=== PATIENT | male | born 1945 | race Caucasian/White ===

== ENCOUNTER 2023-09-10 10:02 | Outpatient (CLI) | payer OTHER, SELFPAY ==
--- OUTSIDE RECORDS SUMMARY | 2023-09-10 10:09 | XMS_ITS | Clinical Summary ---
Author Name Unknown Organization [facility] Address [address] [place] [id number] Care Team Providers Care Field Contact Person Name Role Phone [facility] Primary Care Provider Allergies Active Allergy Reactions Criticality Noted Date Comments Seasonal Allergies 04/17/2023 Medications Medication Sig Dispensed Refills Start Date End Date Status cetirizine (ZYRTEC) 10 MG tablet Take 1 tablet by mouth daily. 0 Active insulin pen needle (NOVOFINE) 30G X 8 MM MISCIndications:Typ e II or unspecified type diabetes mellitus without mention of complication, not stated as uncontrolled Use twice daily or as directed. 100 each 0 04/24/2013 Active LANTUS SOLOSTAR SOLN 100 UNIT/MLIndications: Type II or unspecified type diabetes mellitus without mention of complication, not stated as uncontrolled 17 units at bedtime 1 Month 1 05/22/2013 Active Additional Information Patient taking differently: 14 units at bedtime, Reported on 01/31/2016 glucose blood test strips (ACCU-CHEK COMPACT DRUM TEST STRIPS) stripIndications:Ty pe II or unspecified type diabetes mellitus without mention of complication, not stated as uncontrolled TEST 4 TIMES A DAY 3 Month 3 12/04/2013 Active LOSARTAN POTASSIUM PO Take 25 mg by mouth daily 0 Active LEVOTHYROXINE SODIUM PO Take 50 mcg by mouth 0 Active atorvastatin (LIPITOR) 40 MG tablet Take 40 mg by mouth daily 0 Active alum & mag hydroxide-simethico ne (MYLANTA/MAALOX) 200-200-20 MG/5ML SUSP Take 30 mLs by mouth every 4 hours as needed for indigestion or heartburn 355 mL 1 01/31/2016 Active blood glucose calibration (ACCU-CHEK COMPACT BLUE CONTROL) solutionIndications :Type 2 diabetes mellitus with cataract (H) 1 drop by In Vitro route as needed 1 Bottle 10 02/25/2016 Active benzonatate (TESSALON) 100 MG capsuleIndications: Cough in adult Take 1 capsule (100 mg) by mouth 3 times daily as needed 30 capsule 0 04/17/2023 Active Active Problems Problem Noted Date Diagnosed Date 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 Bipin Maikel Jair has no plan or code status on file. Discussed available resources and provided with information. Confirmed code status reflects current choices pending further ACP discussions. Confirmed/documented designated decision maker(s). See permanent comments section of demographics in clinical tab. Added by Kandi Murcia on 12/26/2013 Advance Care Planning 09/21/2016: ACP Review of Chart / Resources Provided: Reviewed chart for advance care plan. Bipin Maikel Adam has no plan or code status on file. Discussed available resources and provided with information. Confirmed code status reflects current choices pending further ACP discussions. Confirmed/documented legally designated decision makers. Added by Bárbara Sterling Pemphigus vulgaris (H28) 02/20/2011 Peptic ulcer disease 12/28/2010 Overview: Dx by EGD Dr Marmolejo BPH (benign prostatic hyperplasia) 12/28/2010 Resolved Problems Problem Noted Date Diagnosed Date Resolved Date Type 2 diabetes mellitus with cataract 07/10/2015 09/21/2016 Papular rash 12/28/2010 02/20/2011 Diabetes mellitus, type 2 12/09/2010 Overview: Seeing Dr. Marmolejo for diabetes Problem list name updated by automated process. Provider to review Immunizations Name Administration Dates Next Due Influenza (High Dose) 3 valent vaccine 5 Influenza (IIV3) PF 05/30/2013,04/20/2012 Influenza Vaccine >6 months,quad, PF 05/05/2016 Pneumo Conj 13-V (2010&after) 10/02/2014 Pneumococcal 23 valent 07/13/2012 TDAP Vaccine (Adacel) 02/05/2011 Zoster vaccine, live 01/04/2012 Family History Medical History Relation Comments Arthritis Father osteo Prostate Cancer Father Eye Disorder Mother mec degeneration Diabetes Paternal Grandmother type 2 Cancer - colorectal No family hx of Relation Status Comments Brother 1 Alive Brother 2 Alive Father (Age 71) prostate cance r Maternal Grandfather Maternal Grandmother Mother (Age 91) old age Paternal Grandfather Paternal Grandmother Sister Alive Son 1 Alive Son 2 Alive Social History Tobacco Use Types Packs/Day Years Used Date Smoking Tobacco: Never Smokeless Tobacco: Never Tobacco Cessation:Counseling Given: Not Answered Alcohol Use Standard Drinks/Week Comments Yes 1.7 (1 standard drink = 0.6 oz p ure alcohol) PHQ-2 Answer Date Recorded PHQ-2 Score 0 08/23/2018 Adolescent Education Answer Date Record ed Getting School Help Needed Not on file 05/30 Sex and Gender Information Value Date Recorded Sex Assigned at Not on file Gender Identity Not on file Sexual Orientation Not on file Last Filed Vital Signs Vital Sign Reading Time Taken Comments Blood Pressure 138/69 04/17/2023 10:48 AM CDT Pulse 65 04/17/2023 10:48 AM CDT Temperature 37 ??C (98.6 ??F) 04/17/2023 10:48 AM CDT Respiratory Rate 18 01/31/2016 4:18 PM CDT Oxygen Saturation 96% 04/17/2023 10:48 AM CDT Inhaled Oxygen Concentration - - Weight 93 kg (205 lb) 09/21/2016 10:27 AM APPLICATION ARCHITECT MANAGER Height 180.3 cm (5' 11) 09/21/2016 10:27 AM APPLICATION ARCHITECT MANAGER Body Mass Index 28.59 09/21/2016 10:27 AM APPLICATION ARCHITECT MANAGER Plan of Treatment Health Maintenance Due Date Last Done Comments ANNUAL REVIEW OF HM ORDERS 1945 RSV VACCINE ( & 60+) (1 - 1-dose 60+ series) 2006 DIABETIC FOOT EXAM 02/07/2014 02/07/2013 TSH W/FREE T4 REFLEX 09/13/2016 09/13/2015, 09/13/2015, 02/07/2013, Additional history exists A1C 03/21/2017 09/21/2016, 02/14, 09/13/2015, Additional history exists CMP 03/21/2017 09/21/2016, 01/14, 02/11/2015, Additional history exists BMP 09/21/2017 09/21/2016, 02/14, 01/31/2016, Additional history exists FALL RISK ASSESSMENT 09/21/2017 09/21/2016, 02/11/2015, 02/11/2015 LIPID 09/21/2017 09/21/2016, 08/17, 02/11/2015, Additional history exists MEDICARE ANNUAL WELLNESS VISIT 09/21/2017 09/21/2016, 02/11/2015, 02/07/2013, Additional history exists MICROALBUMIN 09/21/2017 09/21/2016, 02/14, 04/10/2014, Additional history exists PSA 09/21/2017 09/21/2016, 01/15, 07/18/2013, Additional history exists ADVANCE CARE PLANNING 09/21/2021 09/21/2016 , 12/26/2013, 04/18/2013, Additional history exists EYE EXAM 12/19/2022 12/19/2021, 09/17, 04/24/2014, Additional history exists COVID-19 Vaccine ( season) 2023 05/30/2022, 11/28/2021, 06/18/2021, Additional history exists INFLUENZA VACCINE (#1) 2023 , 06/30/2021, 05/25/2021, Additional history exists PHQ-2 (once per calendar year) 2023 09/21/2016 HEMOGLOBIN 04/17/2024 04/17/2023, 01/14, 07/04/2014, Additional history exists DTAP/TDAP/TD IMMUNIZATION (3 - Td or Tdap) 01/24/2030 01/25/2020, 02/05/2011 COLONOSCOPY Discontinued 02/19/2011 COLORECTAL CANCER SCREENING Discontinued FIT Discontinued 02/17/2013 URINALYSIS Completed 01/31/2016, 01/15, 01/01/2012, Additional history exists HEPATITIS C SCREENING Completed 09/21/2016 ZOSTER IMMUNIZATION Completed 08/22/2019, 11/05/2018, 08/22/2018, Additional history exists Pneumococcal Vaccine: 65+ Years Completed 10/25/2019, 06/22/2018, 10/02/2014, Additional history exists CT COLONOGRAPHY Discontinued FLEX SIG Discontinued HPV IMMUNIZATION Aged Out No longer e ligible based on patient's age to complete this topic IPV IMMUNIZATION Aged Out No longer e ligible based on patient's age to complete this topic MENINGITIS IMMUNIZATION Aged Out No l onger eligible based on patient's age to complete this topic RSV MONOCLONAL ANTIBODY Aged Out No l onger eligible based on patient's age to complete this topic sDNA (Cologuard) Discontinued Care Teams Field Contact Person Relationship Specialty Start Date End Date Clinic, [place], [place] PCP - General 04/17/23
--- OUTSIDE RECORDS SUMMARY | 2023-09-10 10:09 | XMS_ITS | Referral Summary ---
Author Name Unknown Organization [facility] Address [address] [place] [address] Care Team Providers Care Wild Life Photographer Name Role Phone [facility] Primary Care Provider Allergies Active Allergy Reactions [...] Family history of prostate cancer 02/07/2013 [facility] 07/13/2012 Overview: State Tier Level: Tier 2 Status: n/a Sand Hauler: See Letters for [facility] Care Plan ACP (advance care [...] Vaccine (Adacel) 02/05/2011 Zoster vaccine, live 01/04/2012 Social History Tobacco Use Types Packs/Day Years [...] 93 kg (205 lb) 09/21/2016 10:27 AM JOY OPERATOR HELPER Height 180.3 cm (5' 11) 09/21/2016 10:27 AM JOY OPERATOR HELPER Body Mass Index 28.59 09/21/2016 10:27 AM JOY OPERATOR HELPER Plan of Treatment Not on file Care Teams Wild Life Photographer Relationship Specialty Start Date End Date Clinic, [place], [place] PCP - General 04/17/23
--- OUTSIDE RECORDS SUMMARY | 2023-09-10 10:10 | XMS_ITS | Encounter Summary ---
Author Name Unknown Organization [facility] Address [address] [place] [address] Care Team Providers Care Sales Development Representative Name Role Phone Ryan Joshua MD Primary Care Provider + [phone] Oscar Jeffrey MD Primary Care Provide r Oscar Jeffrey MD Unavailable [phone] [facility] Primary Care Provider Reason for Visit * Reason Comments Refill Request Encounter Details Date Type Department Care Team (Late st Contact Info) Description 03/24/2013 Refill [facility] [address] [place] [address] [place] [phone] Ryan Joshua MD XXX RETIRED XXX [address] [phone] Refill Request Social History Tobacco Use Types Packs/Day Years Used Date Smoking Tobacco: Never Smokeless Tobacco: Never Alcohol Use Standard Drinks/Week Comments Yes 1.7 (1 standard drink = 0.6 oz p ure alcohol) Sex and Gender Information Value Date Recorded Sex Assigned at Not on file Gender Identity Not on file Sexual Orientation Not on file documented as of this encounter Miscellaneous Notes * Telephone Encounter - Dari Cui - 03/24/2013 8:11 AM CDT Refill request for Pending Prescriptions: Disp Refills glyBURIDE (DIABETA / MICRONASE) 5 MG tabl*120 ta*0 Sig: TAKE 2 TABLETS BY MOUTH 2 TIMES DAILY. . Last office visit and/or labs done 03/07/13. Needs 1 mo f/u appt. Please authorize 30 day refill. documented in this encounter Plan of Treatment Not on file documented as of this encounter Visit Diagnoses Diagnosis Type II or unspecified type diabetes mellitus without mention of complication, not stated as uncontrolled- Primary documented in this encounter Additional Health Concerns Infection Onset Date Last Indicated Resolved Time Rule Out COVID-19 04/17/2023 04/17/2023 04/18/2023 11:52 AM CDT documented as of this encounter Care Teams Sales Development Representative Relationship Specialty Start Date End Date Ryan Joshua MD XXX RETIRED XXX [address] [employer] [address] [place] [phone] PCP - General Family Practice 12/09/10 10/25/13 Oscar Jeffrey MD XXX RETIRED XXX [address] [employer] [address] [phone] PCP - General Family Practice 10/26/13 10/30/20 [place], [place] PCP - General 04/17/23 Oscar Jeffrey MD [address] [address] Assigned PCP 08/06/13 09/23/19 documented as of this encounter
--- OUTSIDE RECORDS SUMMARY | 2023-09-10 10:10 | XMS_ITS | Encounter Summary ---
Author Name Unknown Organization [facility] Address [address] [place] [address] Care Team Providers Care Sanitation Truck Cleaner Name Role Phone Ryan Joshua MD Primary Care Provider + [phone] Oscar Jeffrey MD Primary Care Provide r Oscar Jeffrey MD Unavailable [phone] [facility] Primary Care Provider Reason for Visit * Reason Comments Refill Request Encounter Details Date Type Department Care Team (Late st Contact Info) Description 12/29/2012 Refill [facility] [address] [place] [phone] Ryan Joshua MD XXX RETIRED XXX [address] [phone] Refill Request Social History Tobacco Use Types Packs/Day Years Used Date Smoking Tobacco: Never Smokeless Tobacco: Never Alcohol Use Standard Drinks/Week Comments Yes 0 (1 standard drink = 0.6 oz pure alcohol) 1-2 times per month 1 drink per time Sex and Gender Information Value Date Recorded Sex Assigned at Not on file Gender Identity Not on file Sexual Orientation Not on file documented as of this encounter Miscellaneous Notes * Telephone Encounter - Sabine Arriola - 12/29/2012 7:38 AM CDT Refill request for Pending Prescriptions: Disp Refills pioglitazone (ACTOS) 15 MG tablet [Pharma*30 tab*0 Sig: Take 1 tablet by mouth daily. Last office visit and/or labs done 10/26. Needs appt. Please authorize 30 day refill. documented in this encounter Plan of Treatment Not on file documented as of this encounter Visit Diagnoses Diagnosis Diabetes mellitus (H)- Primary Type II or unspecified type diabetes mellitus without mention of complication, not stated as uncontrolled documented in this encounter Additional Health Concerns Infection Onset Date Last Indicated Resolved Time Rule Out COVID-19 04/17/2023 04/17/2023 04/18/2023 11:52 AM CDT documented as of this encounter Care Teams Sanitation Truck Cleaner Relationship Specialty Start Date End Date Ryan Joshua MD XXX RETIRED XXX [address] [employer] [address] [place] [phone] PCP - General Family Practice 12/09/10 10/25/13 Oscar Jeffrey MD XXX RETIRED XXX [address] [employer] [address] [phone] PCP - General Family Practice 10/26/13 10/30/20 [place], [place] PCP - General 04/17/23 Oscar Jeffrey MD [address], [address] [address] Assigned PCP 08/06/13 09/23/19 documented as of this encounter
--- OUTSIDE RECORDS SUMMARY | 2023-09-10 10:10 | XMS_ITS | Encounter Summary ---
Author Name Unknown Organization [facility] Address [address] [place] [address]. [place] [address] Care Team Providers Care Job Printer Name Role Phone [facility] Primary Care Provider Reason for Visit * Reason Comments URI Sore throat tues and wed- coughing/ sneezing, congestion denies fever- malaise/fatigue x5 days Encounter Details Date Type Department Care Team (Late st Contact Info) Description 04/17/2023 10:50 AM CDT Office Visit [facility] [id number] [place] [id number] Susan Weathers MD [address] [place] [address] [address] [place] [address] Cough in adult (Primary Dx); Sorethroat; Chills Social History Tobacco Use Types Packs/Day Years Used Date Smoking Tobacco: Never Smokeless Tobacco: Never Tobacco Cessation:Counseling Given: Not Answered Alcohol Use Standard Drinks/Week Comments Yes 1.7 (1 standard drink = 0.6 oz p ure alcohol) PHQ-2 Answer Date Recorded PHQ-2 Score 0 08/23/2018 Sex and Gender Information Value Date Recorded Sex Assigned at Not on file Gender Identity Not on file Sexual Orientation Not on file COVID-19 Exposure Response Date Recorded In the last 10 days, have yo u been in contact with someone who was confirmed or suspected to have Coronavirus/COVID-19? No / Unsure 04/17/2023 10:33 AM CDT documented as of this encounter Last Filed Vital Signs Vital Sign Reading Time Taken Comments Blood Pressure 138/69 04/17/2023 10:48 AM CDT Pulse 65 04/17/2023 10:48 AM CDT Temperature 37 ??C (98.6 ??F) 04/17/2023 10:48 AM CDT Respiratory Rate - - Oxygen Saturation 96% 04/17/2023 10:48 AM CDT Inhaled Oxygen Concentration - - Weight - - Height - - Body Mass Index - - documented in this encounter Patient Instructions * Patient Instructions* Susan Weathers MD - 04/17/2023 10:50 AM CDT Symptomatic measures encouraged, humidified air, plenty of fluids. Stay well hydrated by drinking 6 to 8 glasses of fluids per day. This includes water, soft drinks, sports drinks, juices, tea, or soup. Extra fluids will help loosen mucus in your nose and lungs. Wgwb-lyb-dwzxvfo cough, cold, and sore-throat medicines will not shorten the length of the illness,but they may be helpful to reduce your symptoms. Follow up if symptoms worsen such as sob, high fever and chest pain in 2-3 days Susan Weathers MD documented in this encounter Progress Notes * Susan Weathers MD - 04/17/2023 10:50 AM CDT Chief Complaint Patient presents with URI Sore throat tues and wed- coughing/ sneezing, congestion denies fever- malaise/fatigue x5 days Bipin was seen today for uri. Diagnoses and all orders for this visit: URI (upper respiratory infection) - Streptococcus A Rapid Screen w/Reflex to PCR - Clinic Collect - Symptomatic COVID-19 Virus (Coronavirus) by PCR Nose - Group A Streptococcus PCR Throat Swab Cough in adult Sorethroat Chills - CBC with platelets and differential; Future Results for orders placed or performed in visit on 04/17/23 CBC with platelets and differential Status: Abnormal Result Value Ref Range WBC Count 8.1 4.0 - 11.0 10e3/uL RBC Count 3.73 (L) 4.40 - 5.90 10e6/uL Hemoglobin 11.9 (L) 13.3 - 17.7 g/dL Hematocrit 35.9 (L) 40.0 - 53.0 % MCV 96 78 - 100 fL MCH 31.9 26.5 - 33.0 pg MCHC 33.1 31.5 - 36.5 g/dL RDW 12.7 10.0 - 15.0 % Platelet Count 211 150 - 450 10e3/uL % Neutrophils 68 % % Lymphocytes 13 % % Monocytes 16 % % Eosinophils 2 % % Basophils 0 % % Immature Granulocytes 0 % Absolute Neutrophils 5.5 1.6 - 8.3 10e3/uL Absolute Lymphocytes 1.1 0.8 - 5.3 10e3/uL Absolute Monocytes 1.3 0.0 - 1.3 10e3/uL Absolute Eosinophils 0.2 0.0 - 0.7 10e3/uL Absolute Basophils 0.0 0.0 - 0.2 10e3/uL Absolute Immature Granulocytes 0.0 <=0.4 10e3/uL Streptococcus A Rapid Screen w/Reflex to PCR - Clinic Collect Status: Normal Specimen: Throat; Swab Result Value Ref Range Group A Strep antigen Negative Negative CBC with platelets and differential Status: Abnormal Narrative The following orders were created for panel order CBC with platelets and differential. Procedure Abnormality Status --------- ------ CBC with platelets and d...[[id number]] Abnormal Final result Please view results for these tests on the individual orders. Symptomatic measures encouraged, humidified air, plenty of fluids. Your appetite may be low, so a light diet is fine. Stay well hydrated by drinking 6 to 8 glasses offluids per day. This includes water, soft drinks, sports drinks, juices, tea, or soup. Extra fluidswill help loosen mucus in your nose and lungs. Eurn-wcn-yyytkoy cough, cold, and sore-throat medicines will not shorten the length of the illness,but they may be helpful to reduce your symptoms. Don't use decongestants if you have high blood pressure. Follow up if symptoms worsen such as sob, high fever and chest pain in 2-3 days Results reviewed with pt As CBC normal no antibiotic needed and also chest was clear on exam Covid pending SUBJECTIVE: Bipin Adam is a 78 year old male with h/o DM who presents to the clinic today with a chief complaint of cough and congestion and also fatigue for 5 day(s).His cough is described as persistent. The patient's symptoms are moderate and stable. Associated symptoms include none. The patient's symptoms are exacerbated by no particular triggers Patient has been using OTC cough suppressants to improve symptoms. Past Medical History: Diagnosis Date Allergic state Diabetes mellitus (H) 12/09/2010 Duodenal ulcer due to Helicobacter pylori treated Thyroid disease Current Outpatient Medications Medication Sig Dispense Refill alum & mag hydroxide-simethicone (MYLANTA/MAALOX) 200-200-20 MG/5ML SUSP Take 30 mLs by mouth every 4 hours as needed for indigestion or heartburn 355 mL 1 atorvastatin (LIPITOR) 40 MG tablet Take 40 mg by mouth daily blood glucose calibration (ACCU-CHEK COMPACT BLUE CONTROL) solution 1 drop by In Vitro route as needed 1 Bottle 10 cetirizine (ZYRTEC) 10 MG tablet Take 1 tablet by mouth daily. glucose blood test strips (ACCU-CHEK COMPACT DRUM TEST STRIPS) strip TEST 4 TIMES A DAY 3 Month 3 insulin pen needle (NOVOFINE) 30G X 8 MM MISC Use twice daily or as directed. 100 each prn LANTUS SOLOSTAR SOLN 100 UNIT/ML 17 units at bedtime (Patient taking differently: 14 units at bedtime) 1 Month 1 LEVOTHYROXINE SODIUM PO Take 50 mcg by mouth LOSARTAN POTASSIUM PO Take 25 mg by mouth daily Social History Tobacco Use Smoking status: Never Smokeless tobacco: Never Substance Use Topics Alcohol use: Yes Alcohol/week: 1.7 standard drinks of alcohol Types: 2 Standard drinks or equivalent per week ROS Review of systems negative except as stated above. OBJECTIVE: BP 138/69 Pulse 65 Temp 98.6 ??F (37 ??C) (Tympanic) SpO2 96% GENERAL APPEARANCE: healthy, alert and no distress EYES: EOMI, PERRL, conjunctiva clear HENT: ear canals and TM's normal. Nose and mouth without ulcers, erythema or lesions NECK: supple, nontender, no lymphadenopathy RESP: lungs clear to auscultation - no rales, rhonchi or wheezes CV: regular rates and rhythm, normal S1 S2, murmur noted PSYCH: mentation appears normal Susan Weathers MD documented in this encounter Plan of Treatment Not on file documented as of this encounter Procedures Procedure Name Priority Date/Time Associated Diagnosis Comments CBC WITH PLATELETS AND DIFFERENTIAL Routine 04/17/2023 11:18 AM CDT Chills CBC WITH PLATELETS & DIFFERENTIAL Routine 04/17/2023 11:18 AM CDT Chills COVID-19 VIRUS (CORONAVIRUS) BY PCR Routine 04/17/2023 10:50 AM CDT Cough in adult STREPTOCOCCUS A RAPID SCREEN W REFELX TO PCR Routine 04/17/2023 10:50 AM CDT Cough in adult GROUP A STREPTOCOCCUS PCR THROAT SWAB Routine 04/17/2023 10:50 AM CDT Cough in adult documented in this encounter Results * (ABNORMAL) CBC with platelets and differential (04/17/2023 11:18 AM CDT) WBC Count 8.1 4.0 - 11.0 10e3/uL 04/17/2023 11:38 AM CDT [facility] RBC Count 3.73(L) 4.40 - 5.90 10e6/uL 04/17/2023 11:38 AM CDT [facility] Hemoglobin 11.9(L) 13.3 - 17.7 g/dL 04/17/2023 11:38 AM CDT [facility] Hematocrit 35.9(L) 40.0 - 53.0 % 04/17/2023 11:38 AM CDT [facility] MCV 96 78 - 100 fL 04/17/2023 11:38 AM CDT [facility] MCH 31.9 26.5 - 33.0 pg 04/17/2023 11:38 AM CDT [facility] MCHC 33.1 31.5 - 36.5 g/dL 04/17/2023 11:38 AM CDT [facility] RDW 12.7 10.0 - 15.0 % 04/17/2023 11:38 AM CDT [facility] Platelet Count 211 150 - 450 10e3/uL 04/17/2023 11:38 AM CDT [facility] % Neutrophils 68 % 04/17/2023 11:38 AM CDT [facility] % Lymphocytes 13 % 04/17/2023 11:38 AM CDT [facility] % Monocytes 16 % 04/17/2023 11:38 AM CDT [facility] % Eosinophils 2 % 04/17/2023 11:38 AM CDT [facility] % Basophils 0 % 04/17/2023 11:38 AM CDT [facility] % Immature Granulocytes 0 % 04/17/2023 11:38 AM CDT [facility] Absolute Neutrophils 5.5 1.6 - 8.3 10e3/uL 04/17/2023 11:38 AM CDT [facility] Absolute Lymphocytes 1.1 0.8 - 5.3 10e3/uL 04/17/2023 11:38 AM CDT [facility] Absolute Monocytes 1.3 0.0 - 1.3 10e3/uL 04/17/2023 11:38 AM CDT [facility] Absolute Eosinophils 0.2 0.0 - 0.7 10e3/uL 04/17/2023 11:38 AM CDT [facility] Absolute Basophils 0.0 0.0 - 0.2 10e3/uL 04/17/2023 11:38 AM CDT [facility] Absolute Immature Granulocytes 0.0 <=0.4 10e3/uL 04/17/2023 11:38 AM CDT [facility] Blood BLOOD SPECIMEN / Unknown Venipuncture / Unknown 04/17/2023 11:18 AM CDT 04/17/2023 11:18 AM CDT Susan Weathers MD LAB - BLOOD ORDERABL ES [facility] [address] [facility] (no room number, 1st floor of clinic) [place] [address], [facility] [phone] * Group A Streptococcus PCR Throat Swab (04/17/2023 10:50 AM CDT) Group A strep by PCR Not Detected Not Detected 04/17/2023 4:36 PM CDT [facility] Swab STRUCTURE OF ANTERIOR PORTION OF NECK / Unknown Non-blood Collection / Unknown 04/17/2023 10:50 AM CDT 04/17/2023 11:06 AM CDT Narrative [facility] - 04/17/2023 4:36 PM CDT The Xpert Xpress Strep A test, performed on the [employer], is a rapid, qualitative in vitro diagnostic test for the detection of Streptococcus pyogenes (Group A ? - hemolytic Streptococcus, Strep A) in throat swab specimens from patients with signs and symptoms of pharyngitis. The Xpert Xpress Strep A test can be used as an aid in the diagnosis of Group A Streptococcal pharyngitis. The assay is not intended to monitor treatment for Group A Streptococcus infections. The Xpert Xpress Strep A test utilizes an automated real-time polymerase chain reaction (PCR) to detect Streptococcus pyogenes DNA. Susan Weathers MD LAB - MICRO GENERAL ORDERABLES [facility] [address] [facility] [place] [address] [phone] * Symptomatic COVID-19 Virus (Coronavirus) by PCR Nose (04/17/2023 10:50 AM CDT) [facility] SARS CoV2 PCR Negative Negative 04/18/2023 11:52 AM CDT [facility] Comment:NEGATIVE: SARS-CoV-2 (COVID-19) RNA not detected, presumed negative. Swab NASAL STRUCTURE / Unknown Non-blood Collection / Unknown 04/17/2023 10:50 AM CDT 04/17/2023 10:57 AM CDT Narrative [facility] - 04/18/2023 11:52 AM CDT Testing was performed using the maria elena SARS-CoV-2 assay on the maria elena [employer] System. This test should be ordered for the detection of SARS-CoV-2 in individuals who meet SARS-CoV-2 clinical and/or epidemiological criteria. Test performance is unknown in asymptomatic patients. This test is for in vitro diagnostic use under the FDA EUA for laboratories certified under CLIA to perform high and/or moderate complexity testing. This test has not been FDA cleared or approved. A negative result does not rule out the presence of PCR inhibitors in the specimen or target RNA in concentration below the limit of detection for the assay. The possibility of a false negative should be considered if the patient's recent exposure or clinical presentation suggests COVID-19. This test was validated by the [facility]. This laboratory is certified under the Clinical Laboratory Improvement Amendments of 1988 (CLIA-88) as qualified to perform high and/or moderate complexity laboratory testing. Susan Weathers MD LAB - MICRO GENERAL ORDERABLES [facility] [address] [facility] [place] [address], [place] [phone] * Streptococcus A Rapid Screen w/Reflex to PCR - Clinic Collect (04/17/2023 10:50 AM CDT) Group A Strep antigen Negative Negative 04/17/2023 11:06 AM [facility]T [facility]ORATORY Swab STRUCTURE OF ANTERIOR PORTION OF NECK / Unknown Non-blood Collection / Unknown 04/17/2023 10:50 AM CDT 04/17/2023 10:56 AM CDT Susan Weathers MD LAB - MICRO GENERAL ORDERABLES [facility] [address] [facility] (no room number, 1st floor of clinic) [place] [address], [facility] [phone] documented in this encounter Visit Diagnoses Diagnosis Cough in adult- Primary Sorethroat Acute pharyngitis Chills Chills (without fever) documented in this encounter Additional Health Concerns Infection Onset Date Last Indicated Resolved Time Rule Out COVID-19 04/17/2023 04/17/2023 04/18/2023 11:52 AM CDT documented as of this encounter Care Teams Job Printer Relationship Specialty Start Date End Date Clinic, [place], [place] PCP - General 04/17/23 documented as of this encounter
--- OUTSIDE RECORDS SUMMARY | 2023-09-10 10:10 | XMS_ITS | Encounter Summary ---
Author Name Unknown Organization [facility] Annita whittaker Address [address] [address] Phone Care Team Providers Care Metal Welder Name Role Phone Nati Olsen MD Primary Care Provider + Reason for Visit * Reason Comments CKD Encounter Details Date Type Department Care Team Description 06/25/2023 10:00 AM [facility] Office Visit [employer] [address] [place] [address] Jomar Young MD [address] [place] [address] Chronic kidney disease, stage 4 (severe) (CMS-HCC) (Primary Dx); Renal disorder due to type 2 diabetes mellitus <Diabetic nephropathy> (CMS-HCC); Metabolic acidosis, not otherwise specified; Secondary hyperparathyroidism of renal origin ([facility]); Essential (primary) hypertension; Benign prostatic hyperplasia without lower urinary tract symptom, not otherwise specified Social History Tobacco Use Types Packs/Day Years Used Date Smoking Tobacco: Never Smokeless Tobacco: Never Alcohol Use Standard Drinks/Week Comments Yes 2 (1 standard drink = 0.6 oz pur e alcohol) Occasional Sex and Gender Information Value Date Recorded Sex Assigned at Not on file Gender Identity Not on file Sexual Orientation Not on file documented as of this encounter Last Filed Vital Signs Vital Sign Reading Time Taken Comments Blood Pressure 128/60 06/25/2023 9:57 AM LATHE SCALPER OPERATOR Pulse 58 06/25/2023 9:57 AM LATHE SCALPER OPERATOR Temperature 36.1 ??C (96.9 ??F) 06/25/2023 9:57 AM CS T Respiratory Rate - - Oxygen Saturation - - Inhaled Oxygen Concentration - - Weight 91.4 kg (201 lb 6.4 oz) 06/25/2023 9:57 A M LATHE SCALPER OPERATOR Height 180.3 cm (5' 11) 06/25/2023 9:57 AM LATHE SCALPER OPERATOR Body Mass Index 28.09 06/25/2023 9:57 AM LATHE SCALPER OPERATOR documented in this encounter Progress Notes * Jomar Young MD - 06/25/2023 10:00 AM CST Images from the original note were not included. Primary Care Physician: Nati Olsen MD, MD Referring Physician: No care steam and power superintendent to display Date of consult: 06/25/23 Visit time 40 minutes including review of medical records ([facility], [facility], Care Everywhere) and history and physical examination. I reviewed records from the [facility]. History of Present Illness: Bipin Adam is a 78 y.o. male presenting with follow-up of chronic kidney disease stage IV. Thishas been complicated by metabolic acidosis, hyperparathyroidism and anemia. Comorbidities include diabetes and he is on insulin. He has hypertension on multiple medications. He has BPH and prostate ca ncer. He was previously doing self intermittent catheterization but in 03/07 got a prostatectomy done. He is no longer doing self intermittent catheterization and his Hytrin has been stopped. For hypertension he is on diltiazem XR, Lasix and losartan. For his chronic kidney disease he is oncalcium plus D, vitamin D, ferrous sulfate and sodium bicarbonate. 07/07 weight 190 blood pressure 131/55 01/05 weight 210 blood pressure 122/50 07/08 weight 201 blood pressure 128/60 pulse 58 07/07 urine protein excretion 797 mg/gram creatinine 2.17 estimated GFR 31 bicarbonate 30 ferritin 34 hemoglobin 12.3 PTH 70 12/06 creatinine 2.40 estimated GFR 27 potassium 4.6 calcium 10.0 hemoglobin A1c 7.0 05/08 hemoglobin 11.9 He is feeling generally well. He is going to see urology at the [facility] next week for physical therapy to improve bladder continence. He has had serial PSAs done since his prostatectomy which are not 0 but are fairly low with the last one being 0.22. Past Medical History: No past medical history on file. No past surgical history on file. does not have any pertinent problems on file. Social and Family History: Family History Problem Relation Age of Onset Diabetes mellitus Relative Heart disease Sibling Hypertensive disorder Sibling Bipin Adam reports that he has never smoked. He has never used smokeless tobacco. He reports current alcohol use of about 2.0 standard drinks of alcohol per week. He reports that he does not currently use drugs. Medications: Current Outpatient Medications: atorvastatin (LIPITOR) 40 MG tablet, 1 tab daily, Disp: , Rfl: 0 Calcium Carb-Cholecalciferol (CALCIUM 600 + D) 600-200 MG-UNIT tablet, Take 1 tablet by mouth 3 times a day , Disp: , Rfl: 0 cetirizine (ZyrTEC) 10 MG tablet, Take 1 tablet by mouth 1 (one) time each day, Disp: , Rfl: 0 Cholecalciferol (VITAMIN D3) 25 MCG (1000 UT) capsule, Take 1 capsule by mouth 1 (one) time each day, Disp: , Rfl: dilTIAZem XR (DILACOR XR) 180 MG 24 hr capsule, Take 180 mg by mouth 1 (one) time each day, Disp: ,Rfl: ferrous sulfate 325 (65 Fe) MG tablet, Take 325 mg by mouth 1 (one) time each day with breakfast, Disp: , Rfl: furosemide (LASIX) 20 MG tablet, Take 10 mg by mouth 1 (one) time each day, Disp: , Rfl: Insulin Aspart (NOVOLOG IJ), Inject 6 Units as directed in the morning and 6 Units in the evening. 8 units with larger meal., Disp: , Rfl: insulin glargine (BASAGLAR KWIKPEN) 100 UNIT/ML injection, Inject 20 Units under the skin 1 (one) time each day, Disp: , Rfl: 0 levothyroxine (SYNTHROID, LEVOTHROID) 50 MCG tablet, Take 50 mcg by mouth 1 (one) time each day , Disp: , Rfl: 0 losartan (COZAAR) 100 MG tablet, TAKE ONE TABLET BY MOUTH ONE TIME DAILY, Disp: , Rfl: 2 omeprazole (PriLOSEC) [address] capsule, Take 20 mg by mouth 1 (one) time each day, Disp: , Rfl: sodium bicarbonate 650 MG tablet, Take 650 mg by mouth 2 (two) times a day, Disp: , Rfl: terazosin (HYTRIN) 5 MG capsule, Take 5 mg by mouth every night Unkown dose, Disp: , Rfl: Today's Medication Changes Accurate as of June 25, 2023 10:23 AM. If you have any questions, ask your nurse or doctor. Discontinued triamcinolone 0.1 % cream Commonly known as: KENALOG Allergies: Bipin Adam has No Known Allergies. Optimal Start: Referrals: Provider Modality Education: Modality Planning: Access Type(s): HARDNESS TESTER Status: Transplant Status: Review of Systems: Review of Systems Negative except as noted above Physical Exam: BP 128/60 (BP Location: Left arm, Patient Position: Sitting) Pulse 58 Temp 96.9 ??F (36.1 ??C) BMI 28.09 kg/m?? Physical Exam Constitutional: Appearance: He is well-developed and well-nourished. HENT: Head: Normocephalic. Eyes: Pupils: Pupils are equal, round, and reactive to light. Neck: Vascular: No JVD. Cardiovascular: Rate and Rhythm: Normal rate. Pulses: Intact distal pulses. Heart sounds: Murmur heard. No friction rub. No gallop. Comments: He has an irregular rhythm. There is a 2/6 systolic murmur across the precordium. There is no jugular venous distention. He has 1+ edema. Pulmonary: Effort: Pulmonary effort is normal. Breath sounds: Normal breath sounds. No wheezing or rales. Musculoskeletal: General: Edema present. Cervical back: Neck supple. Comments: 1+ edema bilaterally Skin: Findings: No erythema or rash. Neurological: Mental Status: He is alert and oriented to person, place, and time. Cranial Nerves: No cranial nerve deficit. Comments: Speech is slow but intact Psychiatric: Mood and Affect: Mood and affect normal. Behavior: Behavior normal. Labs and Imaging: Labs reviewed with patient in clinic: Synopsis No data to display Orders Only on 06/29/2022 Component Date Value Ref Range Status PTH, Intact, Serum/Plasma 06/29/2022 70 16 - 77 pg/mL Final Calcium, Serum/Plasma 06/29/2022 9.2 8.6 - 10.3 mg/dL Final Glucose, Serum/Plasma 06/29/2022 119 (H) 65 - 99 mg/dL Final Urea nitrogen, Serum/Plasma (BUN) 06/29/2022 27 (H) 7 - 25 mg/dL Final Creatinine, Serum/Plasma 06/29/2022 2.17 (H) 0.70 - 1.28 mg/dL Final Estimated Glomerular Filtration Ra* 06/29/2022 31 (L) > OR = 60 mL/min/1.73m2 Final Urea nitrogen/Creatinine, Serum/Pl* 06/29/2022 12 6 - 22 (calc) Final Sodium, Serum/Plasma 06/29/2022 140 135 - 146 mmol/L Final Potassium, Serum/Plasma 06/29/2022 4.6 3.5 - 5.3 mmol/L Final Chloride, Serum/Plasma 06/29/2022 103 98 - 110 mmol/L Final Carbon dioxide CO2), total, Serum/* 06/29/2022 30 20 - 32 mmol/L Final Calcium, Serum/Plasma 06/29/2022 9.2 8.6 - 10.3 mg/dL Final Phosphate, Serum/Plasma 06/29/2022 3.2 2.1 - 4.3 mg/dL Final Albumin, Serum/Plasma 06/29/2022 4.2 3.6 - 5.1 g/dL Final Hemoglobin (HGB) 06/29/2022 12.3 (L) 13.2 - 17.1 g/dL Final Color of Urine 06/29/2022 YELLOW YELLOW Final Appearance of Urine 06/29/2022 CLEAR CLEAR Final Specific gravity of Urine 06/29/2022 1.010 1.001 - 1.035 Final pH of Urine 06/29/2022 6.0 5.0 - 8.0 Final Glucose, Urine 06/29/2022 1+ (A) NEGATIVE Final Bilirubin, total, Urine 06/29/2022 NEGATIVE NEGATIVE Final Ketones, Urine 06/29/2022 NEGATIVE NEGATIVE Final Hemoglobin, Urine 06/29/2022 1+ (A) NEGATIVE Final Protein, Urine 06/29/2022 1+ (A) NEGATIVE Final Nitrite, Urine 06/29/2022 NEGATIVE NEGATIVE Final Leukocyte esterase, Urine 06/29/2022 3+ (A) NEGATIVE Final Leukocytes, Urine sediment 06/29/2022 > OR = 60 (A) < OR = 5 /HPF Final Erythrocytes, Urine sediment 06/29/2022 3-10 (A) < OR = 2 /HPF Final Epithelial cells, squamous, Urine * 06/29/2022 NONE SEEN < OR = 5 /HPF Final Bacteria, Urine sediment 06/29/2022 NONE SEEN NONE SEEN /HPF Final Hyaline casts, Urine sediment 06/29/2022 NONE SEEN NONE SEEN /LPF Final Ferritin, Serum/Plasma 06/29/2022 34 24 - 380 ng/mL Final Creatinine, Urine 06/29/2022 69 20 - 320 mg/dL Final Protein/Creatinine, Urine 06/29/2022 797 (H) 25 - 148 mg/g creat Final Protein/Creatinine, Urine 06/29/2022 0.797 (H) 0.025 - 0.148 mg/mg creat Final Protein, Urine 06/29/2022 55 (H) 5 - 25 mg/dL Final Assessment/Plan Diagnoses and all orders for this visit: Chronic kidney disease, stage 4 (severe) ([facility]) He has chronic kidney disease stage IV. Today we will get a renal panel, PTH, hemoglobin, ferritin and hemoglobin A1c. His creatinine has been reasonably steady over the last few years. His last creatinine that I can find in the chart was in 12/06 at 2.4 with estimated GFR 27. He is on a maximal dose of losartan for nephro protection and Lasix for fluid balance. He is on diltiazem XR but off of Hytrin. He appears to have an irregular rhythm and a systolic murmur. He may be in atrial fibrillation. He is on diltiazem and has a slow heart rate. He is not on a beta-shaquille or anticoagulant. I wrote a note for him to give to his primary care doctor who is going to be seeing at the [facility] in the near future. He likely needs an EKG and a cardiac echo to evaluate. He may need to be started on Eliquis. Renal disorder due to type 2 diabetes mellitus <Diabetic nephropathy> ([facility]) His diabetes is well controlled on insulin. Metabolic acidosis, not otherwise specified He continues on a low-dose of sodium bicarbonate and we will check a bicarbonate level today. We can adjust as needed. Secondary hyperparathyroidism of renal origin ([facility]) Check a PTH today. He is on calcium plus D and vitamin D. We will continue these. Essential (primary) hypertension Blood pressure very well controlled on diltiazem, Lasix, losartan. Benign prostatic hyperplasia without lower urinary tract symptom, not otherwise specified Status post prostatectomy and is no longer doing self intermittent catheterization. He will be working with urology therapy to try and improve his bladder control. Urology is following his PSA levels. Problem Specific Notes: No problem-specific Assessment & Plan notes found for this encounter. Recommendations: Return to clinic 4-6 months Same medications Labs today There are no Patient Instructions on file for this visit. No orders of the defined types were placed in this encounter. Future Appointments No future appointments. [facility] documented in this encounter Plan of Treatment Upcoming Encounters Date Type Department Care Team Description 12/24/2023 10:00 AM [facility]T [facility] [address] [place], [place] [address] Jomar Young MD [address] [facility] [address] [place], [place] [address] documented as of this encounter Visit Diagnoses Diagnosis Chronic kidney disease, stage 4 (severe) ([facility])- Primary Renal disorder due to type 2 diabetes mellitus <Diabetic nephropathy> ([facility]) Metabolic acidosis, not otherwise specified Secondary hyperparathyroidism of renal origin ([facility]) Secondary hyperparathyroidism of renal origin Essential (primary) hypertension Benign prostatic hyperplasia without lower urinary tract symptom, not otherwise specified documented in this encounter Care Teams Metal Welder Relationship Specialty Start Date [place] [address] PCP - General Internal Medicine 12/23/21 documented as of this encounter
--- OUTSIDE RECORDS SUMMARY | 2023-09-10 10:10 | XMS_ITS | Encounter Summary ---
Author Name Unknown Organization [facility] Address [address] [place] [address] Care Team Providers Care Certified Green Building Engineer Name Role Phone Ryan Joshua MD Primary Care Provider + [phone] Oscar Jeffrey MD Primary Care Provide r Oscar Jeffrey MD Unavailable [phone] [facility] Primary Care Provider Reason for Visit * Reason Comments Medication Refill Encounter Details Date Type Department Care Team (Late st Contact Info) Description 07/12/2013 Refill [facility] [address] [place] [phone] Ryan Joshua MD XXX RETIRED XXX [address] [phone] Medication Refill Social History Tobacco Use Types Packs/Day Years [...] encounter Miscellaneous Notes * Telephone Encounter - Jodie Thomas Varsha - 07/12/2013 7:40 AM CST Pending Prescriptions: Disp Refills ACCU-CHEK COMPACT DRUM TEST STRIPS strip *120 st*3 Sig: TEST 4 TIMES A DAY Please close encounter if Rx is faxed to pharmacy. Mustapha Feliciano AL ECONOMIST documented in this encounter Plan of Treatment [...] documented as of this encounter Care Teams Certified Green Building Engineer Relationship Specialty Start Date End Date Ryan Joshua MD XXX RETIRED XXX [address] [phone] PCP - General Family Practice 12/09/10 10/25/13 Oscar Jeffrey MD XXX RETIRED XXX [address] [place] [phone] PCP - General Family Practice 10/26/13 10/30/20 [place], [place] PCP - General 04/17/23 Oscar Jeffrey MD [address] [place] [address] Assigned PCP 08/06/13 09/23/19 documented as of this encounter
--- OUTSIDE RECORDS SUMMARY | 2023-09-10 10:10 | XMS_ITS | Encounter Summary ---
Author Name Unknown Organization [facility] Address [address] [place] [address] Care Team Providers Care Formulator Name Role Phone Ryan Joshua MD Primary Care Provider + [phone] Oscar Jeffrey MD Primary Care Provide r Oscar Jeffrey MD Unavailable [phone] [facility] Primary Care Provider Reason for Visit * Reason Comments Refill Request Encounter Details Date Type Department Care Team (Late st Contact Info) Description 03/23/2013 Refill [facility] [address] [place] [address] [place] [phone] Ryan Joshua MD XXX RETIRED XXX [address] [phone] Refill Request Social History Tobacco [...] encounter Miscellaneous Notes * Telephone Encounter - Regla Miller - 03/24/2013 11:08 AM CDT Bipin Adam Pending Prescriptions: Disp Refills pioglitazone (ACTOS) 15 MG tablet [Pharma*90 tab*0 Sig: Take 3 tablets (45 mg) by mouth daily Per your notes pt is to increase to 45 mg per day. And is to recheck in 1 month documented in this encounter Plan of Treatment [...] documented as of this encounter Care Teams Formulator Relationship Specialty Start Date End Date Ryan Joshua MD XXX RETIRED XXX [address] [employer] [address] [phone] PCP - General Family Practice 12/09/10 10/25/13 Oscar Jeffrey MD XXX RETIRED XXX [address] [address] [phone] PCP - General Family Practice 10/26/13 10/30/20 [place], [place] PCP - General 04/17/23 Oscar Jeffrey MD [address], [address] [address] Assigned PCP 08/06/13 09/23/19 documented as of this encounter
--- OUTSIDE RECORDS SUMMARY | 2023-09-10 10:10 | XMS_ITS | Encounter Summary ---
Author Name Unknown Organization [facility] Address [address] [place] [address] Care Team Providers Care Manager Outreach Name Role Phone Ryan Joshua MD Primary Care Provider + [phone] Oscar Jeffrey MD Primary Care Provide r Oscar Jeffrey MD Unavailable [phone] [facility] Primary Care Provider Reason for Visit * Reason Comments Refill Request Encounter Details Date Type Department Care Team (Late st Contact Info) Description 09/11/2012 Refill [facility] [address] [place] [phone] Ryan Joshua MD XXX RETIRED XXX [address] [phone] Refill Request Social History Tobacco [...] on file documented as of this encounter Plan of Treatment Not on file documented as of this encounter Visit Diagnoses Not on filedocumented in this encounter Additional Health Concerns Infection Onset Date Last Indicated Resolved Time Rule Out COVID-19 04/17/2023 04/17/2023 04/18/2023 11:52 AM CDT documented as of this encounter Care Teams Manager Outreach Relationship Specialty Start Date End Date Ryan Joshua MD XXX RETIRED XXX [address] [phone] PCP - General Family Practice 12/09/10 10/25/13 Oscar Jeffrey MD XXX RETIRED XXX [address] [phone] PCP - General Family Practice 10/26/13 10/30/20 [place], [place] PCP - General 04/17/23 Oscar Jeffrey MD [address] [address] Assigned PCP 08/06/13 09/23/19 documented as of this encounter
--- OUTSIDE RECORDS SUMMARY | 2023-09-10 10:10 | XMS_ITS | Encounter Summary ---
Author Name Unknown Organization [facility] Address [address] [place] [address] Care Team Providers Care Compliance Technician Name Role Phone Ryan Joshua MD Primary Care Provider + [phone] Oscar Jeffrey MD Primary Care Provide r Oscar Jeffrey MD Unavailable [phone] [facility] Primary Care Provider Reason for Visit * Reason Comments Refill Request Encounter Details Date Type Department Care Team (Late st Contact Info) Description 06/29/2012 Refill [facility] [address] [place] [phone] Ryan Joshua MD XXX RETIRED XXX [address] [phone] Refill Request Social History Tobacco [...] * Telephone Encounter - Regla Miller - 06/29/2012 7:37 AM CST Bipin Adam Pending Prescriptions: Disp Refills metFORMIN (GLUCOPHAGE) 500 MG tablet [Pha*120 ta*0 Sig: TAKE 2 TABLETS BY MOUTH 2 TIMES DAILY (WITH MEALS). Refill request for metformin. Last office visit and/or labs done 01-01-12. Needs appt. Please authorize 30 day refill. SETTER documented in this encounter Plan of Treatment [...] documented as of this encounter Care Teams Compliance Technician Relationship Specialty Start Date End Date Ryan Joshua MD XXX RETIRED XXX [address] [employer] [address] [phone] PCP - General Family Practice 12/09/10 10/25/13 Oscar Jeffrey MD XXX RETIRED XXX [address] [phone] PCP - General Family Practice 10/26/13 10/30/20 [facility], [place], [place] PCP - General 04/17/23 Oscar Jeffrey MD [address] [place] [address] Assigned PCP 08/06/13 09/23/19 documented as of this encounter
--- OUTSIDE RECORDS SUMMARY | 2023-09-10 10:10 | XMS_ITS | Clinical Summary ---
Author Name Unknown Organization [facility] Annita whittaker Address [address] [address] Phone Care Team Providers Care Plastics Fabricator Or Welder Name Role Phone Nati Olsen MD Primary Care Provider + Allergies No known active allergies Medications Medication Sig Dispensed Refills Start Date End Date Status levothyroxine (SYNTHROID, LEVOTHROID) 50 MCG tablet Take 50 mcg by mouth 1 (one) time each day 0 04/21/2016 Active cetirizine (ZyrTEC) 10 MG tablet Take 1 tablet by mouth 1 (one) time each day 0 01/16/2016 Active atorvastatin (LIPITOR) 40 MG tablet 1 tab daily 0 01/16/2016 Active losartan (COZAAR) 100 MG tablet TAKE ONE TABLET BY MOUTH ONE TIME DAILY 2 10/28/2016 Active insulin glargine (BASAGLAR KWIKPEN) 100 UNIT/ML injection Inject 20 Units under the skin 1 (one) time each day 0 11/02/2017 Active Calcium Carb-Cholecalciferol (CALCIUM 600 + D) 600-200 MG-UNIT tablet Take 1 tablet by mouth 3 times a day 0 01/21/2016 Active Cholecalciferol (VITAMIN D3) 25 MCG (1000 UT) capsule Take 1 capsule by mouth 1 (one) time each day 0 Active dilTIAZem XR (DILACOR XR) 180 MG 24 hr capsule Take 180 mg by mouth 1 (one) time each day 0 Active sodium bicarbonate 650 MG tablet Take 650 mg by mouth 2 (two) times a day 0 Active Insulin Aspart (NOVOLOG IJ) Inject 6 Units as directed in the morning and 6 Units in the evening. 8 units with larger meal. 0 Active ferrous sulfate 325 (65 Fe) MG tablet Take 325 mg by mouth 1 (one) time each day with breakfast 0 Active omeprazole (PriLOSEC) [address] capsule Take 20 mg by mouth 1 (one) time each day 0 Active furosemide (LASIX) 20 MG tablet Take 10 mg by mouth 1 (one) time each day 0 Active terazosin (HYTRIN) 5 MG capsule Take 5 mg by mouth every night Unkown dose 0 Active Active Problems Problem Noted Date Diagnosed Date Renal disorder due to type 2 diabetes mellitus 0 02/05/2020 Essential (primary) hypertension 12/30/2017 Metabolic acidosis 12/30/2017 Chronic kidney disease, stage 4 (severe) 017 Secondary hyperparathyroidism of renal origin Benign prostatic hyperplasia without lower urinary tract symptom 01/17/2016 Encounters Date Type Department Care Team Description 06/25/2023 10:00 AM MST Office Visit [address] [employer] [address] [place] [address] Jomar Young MD Chronic kidney disease, stage 4 (severe) ([facility]) (Primary Dx); Renal disorder due to type 2 diabetes mellitus <Diabetic nephropathy> ([facility]); Metabolic acidosis, not otherwise specified; Secondary hyperparathyroidism of renal origin ([facility]); Essential (primary) hypertension; Benign prostatic hyperplasia without lower urinary tract symptom, not otherwise specified 06/25/2023 Orders Only [employer] [address] [place] [address] Jomar Young MD from Last 3 Months Family History Medical History Relation Comments Diabetes mellitus Relative Heart disease Sibling 1 Hypertensive disorder Sibling 2 Relation Status Comments Relative Sibling 1 Sibling 2 Social History Tobacco Use Types Packs/Day Years Used Date Smoking Tobacco: Never Smokeless Tobacco: Never Tobacco Cessation:Counseling Given: Not Answered Alcohol Use Standard Drinks/Week Comments Yes 2 (1 standard drink = 0.6 oz pur e alcohol) Occasional Sex and Gender Information Value Date Recorded Sex Assigned at Not on file Gender Identity Not on file Sexual Orientation Not on file Last Filed Vital Signs Vital Sign Reading Time Taken Comments Blood Pressure 128/60 06/25/2023 9:57 AM HYDROELECTRIC STATION OPERATOR CHIEF Pulse 58 06/25/2023 9:57 AM HYDROELECTRIC STATION OPERATOR CHIEF Temperature 36.1 ??C (96.9 ??F) 06/25/2023 9:57 AM CS T Respiratory Rate 16 12/29/2022 8:55 AM CDT Oxygen Saturation 95% 12/29/2022 8:55 AM CDT Inhaled Oxygen Concentration - - Weight 91.4 kg (201 lb 6.4 oz) 06/25/2023 9:57 A M HYDROELECTRIC STATION OPERATOR CHIEF Height 180.3 cm (5' 11) 06/25/2023 9:57 AM HYDROELECTRIC STATION OPERATOR CHIEF Body Mass Index 28.09 06/25/2023 9:57 AM HYDROELECTRIC STATION OPERATOR CHIEF Plan of Treatment Upcoming Encounters Date Type Department Care Team Description 12/24/2023 10:00 AM MDT Office Visit [employer] [address] [place], [place] [phone] Jomar Young MD [address] [facility] [address] [place], [place] [address] Health Maintenance Due Date Last Done Comments Diabetic Foot Exam 1955 Ophthalmology Exam 1955 Pneumococcal PPSV23/PCV13 65 + Years / High and Highest Risk (2 - PPSV23 or PCV20) 08/17/2018 06/22/2018, 10/02/2014 Influenza Vaccine (#1) 2023 , 05/07/2020, 05/09/2019, Additional history exists Procedures Procedure Name Priority Date/Time Associated Diagnosis Comments HEMOGLOBIN A1C, SERUM Routine 06/25/2023 9:27 AM HYDROELECTRIC STATION OPERATOR CHIEF PTH INTACT W/O CALCIUM, SERUM Routine 06/25/2023 9:27 AM HYDROELECTRIC STATION OPERATOR CHIEF FERRITIN, SERUM Routine 06/25/2023 9:27 AM HYDROELECTRIC STATION OPERATOR CHIEF HEMOGLOBIN (HGB), SERUM Routine 06/25/2023 9:27 AM HYDROELECTRIC STATION OPERATOR CHIEF RENAL FUNCTION PANEL (RFP) Routine 06/25/2023 9:27 AM HYDROELECTRIC STATION OPERATOR CHIEF from Last 3 Months Results * (ABNORMAL) Renal Function Panel (RFP) (06/25/2023 9:27 AM HYDROELECTRIC STATION OPERATOR CHIEF) Glucose, Serum/Plasma 272(H) 65 - 99 mg/dL [facility] ([facility]) Comment: ? Fasting reference interval For someone without known diabetes, a glucose value >125 mg/dL indicates that they may have diabetes and this should be confirmed with a follow-up test. Urea nitrogen, Serum/Plasma (BUN) 32(H) 7 - 25 mg/dL [facility] ([facility]) Creatinine, Serum/Plasma 2.24(H) 0.70 - 1.28 mg/dL [facility] ([facility]) Estimated Glomerular Filtration Rate (eGFR) 29(L) > OR = 60 mL/min/1.7 3m2 [facility] ([facility]) Urea nitrogen/Creati nine, Serum/Plasma 14 6 - 22 (calc) [facility] ([facility]) Sodium, Serum/Plasma 139 135 - 146 mmol/L [facility] ([facility]) Potassium, Serum/Plasma 4.7 3.5 - 5.3 mmol/L [facility] ([facility]) Chloride, Serum/Plasma 102 98 - 110 mmol/L [facility] ([facility]) Carbon dioxide CO2), total, Serum/Plasma 29 20 - 32 mmol/L [facility] ([facility]) Calcium, Serum/Plasma 9.7 8.6 - 10.3 mg/dL [facility] ([facility]) Phosphate, Serum/Plasma 2.9 2.1 - 4.3 mg/dL [facility] ([facility]) Albumin, Serum/Plasma 4.5 3.6 - 5.1 g/dL [facility] ([facility]) 06/25/2023 9:27 AM HYDROELECTRIC STATION OPERATOR CHIEF 06/25/2023 9:28 AM HYDROELECTRIC STATION OPERATOR CHIEF Narrative Resulting Agency Comment Performing Organization Information: ?Site ID: [id number] ?Name: [employer]Justin Knight ?Address: [address] [place] [phone] ?Director: Víctor Nguyễn Jomar Young MD LAB BLOOD ORDERABLES [facility] ([facility]) * (ABNORMAL) Hemoglobin (HGB), Serum (06/25/2023 9:27 AM HYDROELECTRIC STATION OPERATOR CHIEF) Hemoglobin (HGB) 12.9(L) 13.2 - 17.1 g/dL [facility] ([facility]) 06/25/2023 9:27 AM HYDROELECTRIC STATION OPERATOR CHIEF 06/25/2023 9:28 AM HYDROELECTRIC STATION OPERATOR CHIEF Narrative Resulting Agency Comment Performing Organization Information: ?Site ID: [id number] ?Name: [employer]in [facility] ?Address: [address] [place] [phone] ?Director: Víctor Nguyễn Jomar Young MD LAB BLOOD ORDERABLES Performing Organization Address [facility] de Phone Number [facility] ([facility]) * (ABNORMAL) Hemoglobin A1c, Serum (06/25/2023 9:27 AM HYDROELECTRIC STATION OPERATOR CHIEF) Hemoglobin A1c/Hemoglobin, total, Blood 7.5(H) <5.7 % of total Hgb [facility] ([facility]) Comment: For someone without known diabetes, a hemoglobin A1c value of 6.5% or greater indicates that they may have diabetes and this should be confirmed with a follow-up test. For someone with known diabetes, a value <7% indicates that their diabetes is well controlled and a value greater than or equal to 7% indicates suboptimal control. A1c targets should be individualized based on duration of diabetes, age, comorbid conditions, and other considerations. Currently, no consensus exists regarding use of hemoglobin A1c for diagnosis of diabetes for children. ?? 06/25/2023 9:27 AM HYDROELECTRIC STATION OPERATOR CHIEF 06/25/2023 9:28 AM HYDROELECTRIC STATION OPERATOR CHIEF Narrative Resulting Agency Comment Performing Organization Information: ?Site ID: [id number] ?Name: [facility] ?Address: [address] [place] [phone] ?Director: Víctor Nguyễn Jomar Young MD LAB BLOOD ORDERABLES Performing Organization Address City/[facility]/ZIP Co de Phone Number [facility] ([facility]) * Ferritin, Serum (06/25/2023 9:27 AM HYDROELECTRIC STATION OPERATOR CHIEF) Ferritin, Serum/Plasma 81 24 - 380 ng/mL [facility] ([facility]) 06/25/2023 9:27 AM HYDROELECTRIC STATION OPERATOR CHIEF 06/25/2023 9:28 AM HYDROELECTRIC STATION OPERATOR CHIEF Narrative Resulting Agency Comment Performing Organization Information: ?Site ID: [id number] ?Name: [employer] [facility]Justin Knight ?Address: [address] [place] [address] [place] [address] ?Director: Víctor Nguyễn Jomar Young MD LAB BLOOD ORDERABLES [facility] ([facility]) * PTH Intact w/o Calcium, Serum (06/25/2023 9:27 AM HYDROELECTRIC STATION OPERATOR CHIEF) PTH, Intact, Serum/Plasma 57 16 - 77 pg/mL [facility] ([facility]) Comment: Interpretive Guide ?Intact PTH ? Calcium ? ------- Normal Parathyroid ?Normal ? Normal Hypoparathyroidism ?Low or Low Normal ?Low Hyperparathyroidism ?? Primary ?Normal or High ? High ?? Secondary ?High ? Normal or Low ?? Tertiary ? High ? High Non-Parathyroid ?? Hypercalcemia ?Low or Low Normal ?High 06/25/2023 9:27 AM HYDROELECTRIC STATION OPERATOR CHIEF 06/25/2023 9:28 AM HYDROELECTRIC STATION OPERATOR CHIEF Narrative Resulting Agency Comment Performing Organization Information: ?Site ID: [id number] ?Name: [facility] Knight ?Address: [address] [place] [address] [place] [address] ?Director: Víctor Nguyễn Jomar Young MD LAB BLOOD ORDERABLES [facility] ([facility]) from Last 3 Months Care Teams Plastics Fabricator Or Welder Relationship Specialty Start Date End [place] [address] PCP - General Internal Medicine 12/23/21
--- OUTSIDE RECORDS SUMMARY | 2023-09-10 10:10 | XMS_ITS | Encounter Summary ---
Author Name Unknown Organization [facility] Address [address] [place] [address] Care Team Providers Care Synchro Assembler Name Role Phone Ryan Joshua MD Primary Care Provider + [phone] Oscar Jeffrey MD Primary Care Provide r Oscar Jeffrey MD Unavailable [phone] [facility] Primary Care Provider Reason for Visit * Reason Comments Refill Request Encounter Details Date Type Department Care Team (Late st Contact Info) Description 11/03/2012 Refill [facility] [address] [place] [phone] Ryan Joshua MD XXX RETIRED XXX [address] [phone] Refill Request Social History Tobacco [...] documented as of this encounter Care Teams Synchro Assembler Relationship Specialty Start Date End Date Ryan Joshua MD XXX RETIRED XXX [address] [phone] PCP - General Family Practice 12/09/10 10/25/13 Oscar Jeffrey MD XXX RETIRED XXX [address] [phone] PCP - General Family Practice 10/26/13 10/30/20 [place], [place] PCP - General 04/17/23 Oscar Jeffrey MD [address] [address] Assigned PCP 08/06/13 09/23/19 documented as of this encounter
--- OUTSIDE RECORDS SUMMARY | 2023-09-10 10:10 | XMS_ITS | Encounter Summary ---
Author Name Unknown Organization [facility] Address [address] [place] [address] Care Team Providers Care Propeller Inspector Name Role Phone [facility] Primary Care Provider Encounter Details Date Type Department Care Team (Latest Contact Info) Description 04/17/2023 Travel Social History Tobacco Use Types Packs/Day Years [...] AM CDT documented as of this encounter Plan of Treatment Not on file documented as of this encounter Visit Diagnoses Not on filedocumented in this encounter Additional Health Concerns Infection Onset Date Last Indicated Resolved Time Rule Out COVID-19 04/17/2023 04/17/2023 04/18/2023 11:52 AM CDT documented as of this encounter Care Teams Propeller Inspector Relationship Specialty Start Date End Date [place], [place] PCP - General 04/17/23 documented as of this encounter
--- OUTSIDE RECORDS SUMMARY | 2023-09-10 10:10 | XMS_ITS | Encounter Summary ---
Author Name Unknown Organization [facility] Annita whittaker Address [address], [place] [address] Phone Care Team Providers Care Enrollment Clerk Name Role Phone Nati Olsen MD Primary Care Provider + Encounter Details Date Type Department Care Team Description 06/25/2023 Orders Only [facility] [address] [place], [place] [id number] Jomar Young MD [address] [facility] [address] [place], [place] [address] Social History Tobacco Use Types Packs/Day Years Used Date Smoking Tobacco: Never Smokeless Tobacco: Never Alcohol Use Standard Drinks/Week Comments Yes 2 (1 standard drink = 0.6 oz pur e alcohol) Occasional Sex and Gender Information Value Date Recorded Sex Assigned at Not on file Gender Identity Not on file Sexual Orientation Not on file documented as of this encounter Progress Notes * Margie Javier RN - 06/25/2023 11:59 PM CST Images from the original note were not included. MD Margie Anne RN Labs show Cr slightly worse. Lytes ok. Hgb 12.9 HgbA1C 7.5, good Let's add Jardiance at 10 mg per day for DM and CKD. Cont other meds the same. RP 4 weeks after starting. Cont oral Fe. * Margie Javier RN - 06/25/2023 11:59 PM CST Bipin is wanting to think about the jardiance recommendation. [facility]. 6 months later he was dehydrated, had lots 30#, had diarrhea, felt miserable. [facility]. He feels it was likely the ozempic, but isn't sure he wants to try either. He will consider things. I will also revisit this with Dr. Young to see if he would want to changethat order or let pt decide. documented in this encounter Plan of Treatment Upcoming Encounters Date Type Department Care Team Description 12/24/2023 10:00 AM MDT Office Visit [facility] [employer] [address] [facility] [address] [place] [address] Jomar Young MD [address] [facility] [address] [facility] [address] [place] [address] documented as of this encounter Procedures Procedure Name Priority Date/Time Associated Diagnosis Comments RENAL FUNCTION PANEL (RFP) Routine 06/25/2023 9:27 AM LEGAL ADVISOR HEMOGLOBIN (HGB), SERUM Routine 06/25/2023 9:27 AM LEGAL ADVISOR HEMOGLOBIN A1C, SERUM Routine 06/25/2023 9:27 AM LEGAL ADVISOR FERRITIN, SERUM Routine 06/25/2023 9:27 AM LEGAL ADVISOR PTH INTACT W/O CALCIUM, SERUM Routine 06/25/2023 9:27 AM LEGAL ADVISOR documented in this encounter Results * (ABNORMAL) Hemoglobin A1c, Serum (06/25/2023 9:27 AM LEGAL ADVISOR) Hemoglobin A1c/Hemoglobin, total, Blood 7.5(H) <5.7 % of total Hgb [facility] ([facility]) Comment: For someone without known diabetes, a [...] diabetes for children. ?? 06/25/2023 9:27 AM LEGAL ADVISOR 06/25/2023 9:28 AM LEGAL ADVISOR Narrative Resulting Agency Comment Performing Organization Information: ?Site ID: CB ?Name: [email or web address] [facility] ?Address: [address] [place] [phone] ?Director: Víctor Nguyễn Jomar Young MD LAB BLOOD ORDERABLES [facility] ([facility]) * PTH Intact w/o Calcium, Serum (06/25/2023 9:27 AM LEGAL ADVISOR) PTH, Intact, Serum/Plasma 57 16 - 77 pg/mL [facility] ([facility]) Comment: Interpretive Guide ?Intact PTH ? Calcium ? ------- Normal Parathyroid ?Normal ? Normal Hypoparathyroidism ?Low or Low Normal ?Low Hyperparathyroidism ?? Primary ?Normal or High ? High ?? Secondary ?High ? Normal or Low ?? Tertiary ? High ? High Non-Parathyroid ?? Hypercalcemia ?Low or Low Normal ?High 06/25/2023 9:27 AM LEGAL ADVISOR 06/25/2023 9:28 AM LEGAL ADVISOR Narrative Resulting Agency Comment Performing Organization Information: ?Site ID: CB ?Name: [facility] Knight ?Address: [address] [place] [phone] ?Director: Víctor Nguyễn Jomar Young MD LAB BLOOD ORDERABLES [facility] ([facility]) * Ferritin, Serum (06/25/2023 9:27 AM LEGAL ADVISOR) Ferritin, Serum/Plasma 81 24 - 380 ng/mL [facility] ([facility]) 06/25/2023 9:27 AM LEGAL ADVISOR 06/25/2023 9:28 AM LEGAL ADVISOR Narrative Resulting Agency Comment Performing Organization Information: ?Site ID: CB ?Name: [facility] Knight ?Address: [address] [place] [address] [place] [address] ?Director: Víctor Nguyễn Jomar Young MD LAB BLOOD ORDERABLES [facility] ([facility]) * (ABNORMAL) Hemoglobin (HGB), Serum (06/25/2023 9:27 AM LEGAL ADVISOR) Hemoglobin (HGB) 12.9(L) 13.2 - 17.1 g/dL [facility] ([facility]) 06/25/2023 9:27 AM LEGAL ADVISOR 06/25/2023 9:28 AM LEGAL ADVISOR Narrative Resulting Agency Comment Performing Organization Information: ?Site ID: CB ?Name: [facility] ?Address: [address] [place] [address] [place] [address] ?Director: Víctor Nguyễn Jomar Young MD LAB BLOOD ORDERABLES [facility] ([facility]) * (ABNORMAL) Renal Function Panel (RFP) (06/25/2023 9:27 AM LEGAL ADVISOR) Glucose, Serum/Plasma 272(H) 65 - 99 mg/dL [...] [facility] ([facility]) 06/25/2023 9:27 AM LEGAL ADVISOR 06/25/2023 9:28 AM LEGAL ADVISOR Narrative Resulting Agency Comment Performing Organization Information: ?Site ID: ?Name: [employer] [facility] ?Address: [address] [place] [address] ?Director: Víctor Nguyễn Jomar Young MD LAB BLOOD ORDERABLES [facility] ([facility]) documented in this encounter Visit Diagnoses Not on filedocumented in this encounter Care Teams Enrollment Clerk Relationship Specialty Start Date End Date Nati Olsen MD [place], [place] [address] PCP - General Internal Medicine 12/23/21 documented as of this encounter
--- OUTSIDE RECORDS SUMMARY | 2023-09-10 10:10 | XMS_ITS | Encounter Summary ---
Author Name Unknown Organization [facility] Address [address] [place] [address]. [place] [address] Care Team Providers Care Electroless Plater Name Role Phone Ryan Joshua MD Primary Care Provider + [phone] Oscar Jeffrey MD Primary Care Provide r Oscar Jeffrey MD Unavailable [phone] [facility] Primary Care Provider Reason for Visit * Reason Onset Date Comments Refill Request 04/08/2011 GLYBURIDE Encounter Details Date Type Department Care Team (Late st Contact Info) Description 04/08/2011 Refill [address], [address] [place] [address] Stephen Marmolejo MD XXX RETIRED XXX [address] [place] [address] Refill Request (GLYBURIDE) Social History Tobacco Use Types Packs/Day Years [...] encounter Miscellaneous Notes * Telephone Encounter - Alize Layton - 04/08/2011 4:47 PM CDT Unable to fill per standing order. Routed to PCP. Interim refill already given. Per last lab noted patient due for office visit in March. Juan Carlos Layton, RN, BS, PHN * Telephone Encounter - Emma Christy - 04/08/2011 4:42 PM CDT [facility] pharmacy is calling for a refill on this patient. They said they sent the request awhile ago but we haven't received one. Please advise. -Emma Benzer documented in this encounter Plan of Treatment Not on file documented as of this encounter Visit Diagnoses Diagnosis Type 2 diabetes, HbA1c goal < 7% (H) Type II or unspecified type diabetes mellitus without mention of complication, not stated as uncontrolled documented in this encounter Additional Health Concerns Infection Onset Date Last Indicated Resolved Time Rule Out COVID-19 04/17/2023 04/17/2023 04/18/2023 11:52 AM CDT documented as of this encounter Care Teams Electroless Plater Relationship Specialty Start Date End Date Ryan Joshua MD XXX RETIRED XXX [address] [phone] PCP - General Family Practice 12/09/10 10/25/13 Oscar Jeffrey MD XXX RETIRED XXX [address] [phone] PCP - General Family Practice 10/26/13 10/30/20 [place], [place] PCP - General 04/17/23 Oscar Jeffrey MD [address], [address] [address] Assigned PCP 08/06/13 09/23/19 documented as of this encounter
--- OUTSIDE RECORDS SUMMARY | 2023-09-10 10:10 | XMS_ITS | Encounter Summary ---
Author Name Unknown Organization [facility] Address [address] [place] [address] Care Team Providers Care Cargo Tank Mechanic Name Role Phone Ryan Joshua MD Primary Care Provider + [phone] Oscar Jeffrey MD Primary Care Provide r Oscar Jeffrey MD Unavailable [phone] [facility] Primary Care Provider Reason for Visit * Reason Comments Refill Request Encounter Details Date Type Department Care Team (Late st Contact Info) Description 08/10/2012 Refill [facility] [address] [place] [phone] Ryan Joshua MD XXX RETIRED XXX [address] [phone] Refill Request Social History Tobacco [...] * Telephone Encounter - Dari Cui - 08/10/2012 1:28 PM CST Bipin Adam is requesting a refill of: Pending Prescriptions: Disp Refills metFORMIN (GLUCOPHAGE) 500 MG tablet [Pha*120 ta*2 Sig: TAKE 2 TABLETS BY MOUTH 2 TIMES DAILY (WITH MEALS). A1C 9.4 08/03/2012 A1C 9.8 07/18/2012 A1C 9.9 07/13/2012 OR ANDROID DEVELOPER documented in this encounter Plan of Treatment [...] documented as of this encounter Care Teams Cargo Tank Mechanic Relationship Specialty Start Date End Date Ryan Joshua MD XXX RETIRED XXX [address] [phone] PCP - General Family Practice 12/09/10 10/25/13 Oscar Jeffrey MD XXX RETIRED XXX [address] [phone] PCP - General Family Practice 10/26/13 10/30/20 [place], [place] PCP - General 04/17/23 Oscar Jeffrey MD [address] [place] [address] Assigned PCP 08/06/13 09/23/19 documented as of this encounter
--- OUTSIDE RECORDS SUMMARY | 2023-09-10 10:10 | XMS_ITS | Encounter Summary ---
Author Name Unknown Organization [facility] Address [address] [place] [address] Care Team Providers Care Freight Separator Name Role Phone Ryan Joshua MD Primary Care Provider + [phone] Oscar Jeffrey MD Primary Care Provide r Oscar Jeffrey MD Unavailable [phone] [facility] Primary Care Provider Reason for Visit * Reason Comments Refill Request Encounter Details Date Type Department Care Team (Late st Contact Info) Description 05/01/2013 Refill [facility] [address] [place] [address] [place] [phone] Ryan Joshua MD XXX RETIRED XXX [address] [phone] Refill Request Social History Tobacco [...] documented as of this encounter Care Teams Freight Separator Relationship Specialty Start Date End Date Ryan Joshua MD XXX RETIRED XXX [address] [place] [phone] PCP - General Family Practice 12/09/10 10/25/13 Oscar Jeffrey MD XXX RETIRED XXX [address] [phone] PCP - General Family Practice 10/26/13 10/30/20 [place], [place] PCP - General 04/17/23 Oscar Jeffrey MD [address], [address] [phone] Assigned PCP 08/06/13 09/23/19 documented as of this encounter
--- OUTSIDE RECORDS SUMMARY | 2023-09-10 10:11 | XMS_ITS | Encounter Summary ---
Author Name Unknown Organization [facility] Ann[facility] whittaker Address [address] [address] Phone Care Team Providers Care Roentgenology Teacher Name Role Phone Nati Olsen MD Primary Care Provider + Encounter Details Date Type Department Care Team Description 12/29/2022 9:00 AM MDT Office Visit [facility] [address] [place] [address] Jomar Young MD [address] [place] [address] Chronic kidney disease, stage 4 (severe) (CMS-HCC) (Primary Dx); Renal disorder due to type 2 diabetes mellitus <Diabetic nephropathy> (CMS-HCC); Essential (primary) hypertension; Benign prostatic hyperplasia without lower urinary tract symptom, not otherwise specified; Secondary hyperparathyroidism of renal origin (CMS-HCC); Metabolic acidosis, not otherwise specified Social History Tobacco Use [...] Sign Reading Time Taken Comments Blood Pressure 122/50 12/29/2022 8:55 AM CDT Pulse 51 12/29/2022 8:55 AM CDT Temperature 36.4 ??C (97.5 ??F) 12/29/2022 8:55 AM CD T Respiratory Rate 16 12/29/2022 8:55 AM CDT Oxygen Saturation 95% 12/29/2022 8:55 AM CDT Inhaled Oxygen Concentration - - Weight 95.3 kg (210 lb) 12/29/2022 8:55 AM CDT Height 180.3 cm (5' 11) 12/29/2022 8:55 AM CDT Body Mass Index 29.29 12/29/2022 8:55 AM CDT documented in this encounter Progress Notes * Jomar Young MD - 12/29/2022 9:00 AM CDT Images from the original note were not included. Primary Care Physician: Nati Olsen MD, MD Referring Physician: No care presentation team member to display Date of consult: 12/29/22 Total visit time 45 minutes including review of medical records ([facility], [facility], Care Everywhere) and history and physical examination. History of Present Illness: Bipin Adam is a 77 y.o. male presenting with Follow-up of chronic kidney disease stage IV. Thishas been complicated by metabolic acidosis, hyperparathyroidism and anemia. He is on oral iron. He has diabetes, hypertension, BPH/prostate cancer, peptic ulcer disease. He has a diagnosis now of BPH and prostate cancer. He is doing intermittent catheterization 3 timesper day. He also passes urine at other times but has incomplete emptying. He is being managed at the [facility] for this. They are planning to do surgical intervention on the prostate both for BPH and for prostate cancer. He will be seeing them in January 2023. He is on calcium plus D vitamin D and ferrous sulfate. He has not been on EPO. For his blood pressure he is on diltiazem XR 180 mg/day, losartan 100 mg/day, Lasix 20 mg tablet, 1/2 tablet/day - 10 mgper day. He is also on terazosin at night he is uncertain of the dose. He takes insulin for his diabetes and sodium bicarbonate for his metabolic acidosis. 01/04 weight 189 blood pressure 116/59 07/07 weight 190 blood pressure 131/55 01/05 weight 210 blood pressure 122/50 pulse 51 He feels that the diuretic has helped with his edema. He is not having trouble with the self intermittent catheterization. He notes some shortness of breath and increased heart rate when walking. Hisresting heart rate he tells me is 50-60. 07/06 creatinine 2.66 estimated GFR 22 05/07 creatinine 2.60 estimated GFR 25 hemoglobin 9.6 07/07 creatinine 2.17 estimated GFR 31 PTH 70 hemoglobin 12.3 ferritin 34 urine protein/creatinine 797 12/06 creatinine 2.4 estimated GFR 27 potassium 4.6 sodium 143 calcium 10.0 magnesium 2.2 [id number] 7.0 Past Medical History: No past medical history on file. No past surgical history on file. does not have any pertinent problems on file. Social and Family History: Family History Problem Relation Age of Onset ??? Diabetes mellitus Relative ??? Heart disease Sibling ??? Hypertensive disorder Sibling Bipin Adam reports that he has never smoked. He has never used smokeless tobacco. He reports current alcohol use of about 2.0 standard drinks per week. He reports that he does not currently use drugs. Medications: Current Outpatient Medications: ??? atorvastatin (LIPITOR) 40 MG tablet, 1 tab daily, Disp: , Rfl: 0 ??? Calcium Carb-Cholecalciferol (CALCIUM 600 + D) 600-200 MG-UNIT tablet, Take 1 tablet by mouth 3times a day , Disp: , Rfl: 0 ??? cetirizine (ZyrTEC) 10 MG tablet, Take 1 tablet by mouth 1 (one) time each day, Disp: , Rfl: 0 ??? Cholecalciferol (VITAMIN D3) 25 MCG (1000 UT) capsule, Take 1 capsule by mouth 1 (one) time each day, Disp: , Rfl: ??? dilTIAZem XR (DILACOR XR) 180 MG 24 hr capsule, Take 180 mg by mouth 1 (one) time each day, Disp: , Rfl: ??? ferrous sulfate 325 (65 Fe) MG tablet, Take 325 mg by mouth 1 (one) time each day with breakfast, Disp: , Rfl: ??? Insulin Aspart (NOVOLOG IJ), Inject 8 Units as directed 1 (one) time each day, Disp: , Rfl: ??? insulin glargine (BASAGLAR KWIKPEN) 100 UNIT/ML injection, Inject 22 Units under the skin 1 (one) time each day, Disp: , Rfl: 0 ??? levothyroxine (SYNTHROID, LEVOTHROID) 50 MCG tablet, Take 50 mcg by mouth 1 (one) time each day, Disp: , Rfl: 0 ??? losartan (COZAAR) 100 MG tablet, TAKE ONE TABLET BY MOUTH ONE TIME DAILY, Disp: , Rfl: 2 ??? omeprazole (PriLOSEC) [address] capsule, Take 20 mg by mouth 1 (one) time each day, Disp: , Rfl: ??? sodium bicarbonate 650 MG tablet, Take 650 mg by mouth 2 (two) times a day, Disp: , Rfl: ??? triamcinolone (KENALOG) 0.1 % cream, Apply to rash on trunk twice daily as needed, Disp: , Rfl: Allergies: Bipin Adam has No Known Allergies. 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 Physical Exam Constitutional: Appearance: He is well-developed and well-nourished. HENT: Head: Normocephalic and atraumatic. Eyes: Pupils: Pupils are equal, round, and reactive to light. Neck: Vascular: No JVD. Cardiovascular: Rate and Rhythm: Normal rate and regular rhythm. Pulses: Intact distal pulses. Heart sounds: Murmur heard. Comments: 2/6 systolic murmur Pulmonary: Effort: Pulmonary effort is normal. Breath sounds: Normal breath sounds. No wheezing or rales. Musculoskeletal: General: Edema present. Normal range of motion. Cervical back: Normal range of motion. Comments: He has 1+ edema bilaterally Skin: Findings: No erythema or rash. Neurological: Mental Status: He is alert and oriented to person, place, and time. Cranial Nerves: No cranial nerve deficit. Psychiatric: Mood and Affect: Mood and affect normal. Behavior: Behavior normal. Labs and Imaging: Labs reviewed with patient in clinic: Synopsis No data to display Orders Only on 06/29/2022 Component Date Value Ref Range Status ??? PTH, Intact, Serum/Plasma 06/29/2022 70 16 - 77 pg/mL Final ??? Calcium, Serum/Plasma 06/29/2022 9.2 8.6 - 10.3 mg/dL Final ??? Glucose, Serum/Plasma 06/29/2022 119 (H) 65 - 99 mg/dL Final ??? Urea nitrogen, Serum/Plasma (BUN) 06/29/2022 27 (H) 7 - 25 mg/dL Final ??? Creatinine, Serum/Plasma 06/29/2022 2.17 (H) 0.70 - 1.28 mg/dL Final ? ? Estimated Glomerular Filtration Ra* 06/29/2022 31 (L) > OR = 60 mL/min/1.73m2 Final ??? Urea nitrogen/Creatinine, Serum/Pl* 06/29/2022 12 6 - 22 (calc) Final ??? Sodium, Serum/Plasma 06/29/2022 140 135 - 146 mmol/L Final ??? Potassium, Serum/Plasma 06/29/2022 4.6 3.5 - 5.3 mmol/L Final ??? Chloride, Serum/Plasma 06/29/2022 103 98 - 110 mmol/L Final ??? Carbon dioxide CO2), total, Serum/* 06/29/2022 30 20 - 32 mmol/L Final ??? Calcium, Serum/Plasma 06/29/2022 9.2 8.6 - 10.3 mg/dL Final ??? Phosphate, Serum/Plasma 06/29/2022 3.2 2.1 - 4.3 mg/dL Final ??? Albumin, Serum/Plasma 06/29/2022 4.2 3.6 - 5.1 g/dL Final ??? Hemoglobin (HGB) 06/29/2022 12.3 (L) 13.2 - 17.1 g/dL Final ??? Color of Urine 06/29/2022 YELLOW YELLOW Final ??? Appearance of Urine 06/29/2022 CLEAR CLEAR Final ??? Specific gravity of Urine 06/29/2022 1.010 1.001 - 1.035 Final ??? pH of Urine 06/29/2022 6.0 5.0 - 8.0 Final ??? Glucose, Urine 06/29/2022 1+ (A) NEGATIVE Final ??? Bilirubin, total, Urine 06/29/2022 NEGATIVE NEGATIVE Final ??? Ketones, Urine 06/29/2022 NEGATIVE NEGATIVE Final ??? Hemoglobin, Urine 06/29/2022 1+ (A) NEGATIVE Final ??? Protein, Urine 06/29/2022 1+ (A) NEGATIVE Final ??? Nitrite, Urine 06/29/2022 NEGATIVE NEGATIVE Final ??? Leukocyte esterase, Urine 06/29/2022 3+ (A) NEGATIVE Final ? ? Leukocytes, Urine sediment 06/29/2022 > OR = 60 (A) < OR = 5 /HPF Final ? ? Erythrocytes, Urine sediment 06/29/2022 3-10 (A) < OR = 2 /HPF Final ? ? Epithelial cells, squamous, Urine * 06/29/2022 NONE SEEN < OR = 5 /HPF Final ??? Bacteria, Urine sediment 06/29/2022 NONE SEEN NONE SEEN /HPF Final ??? Hyaline casts, Urine sediment 06/29/2022 NONE SEEN NONE SEEN /LPF Final ??? Ferritin, Serum/Plasma 06/29/2022 34 24 - 380 ng/mL Final ??? Creatinine, Urine 06/29/2022 69 20 - 320 mg/dL Final ??? Protein/Creatinine, Urine 06/29/2022 797 (H) 25 - 148 mg/g creat Final ??? Protein/Creatinine, Urine 06/29/2022 0.797 (H) 0.025 - 0.148 mg/mg creat Final ??? Protein, Urine 06/29/2022 55 (H) 5 - 25 mg/dL Final Assessment/Plan Diagnoses and all orders for this visit: Chronic kidney disease, stage 4 (severe) ([facility]) His kidney function has been stable. He has chronic kidney disease Stage IV. His creatinine has fluctuated from 2.17- 2.66. His most recent creatinine is 2.4 with an estimated GFR of 27.He is on sodium bicarbonate. He is on ferrous sulfate. His last PTH was reasonable at 70. His last hemoglobin wasreasonable at 12.3. His electrolytes have been good. Is on losartan for nephro protection. When he comes back to see us in clinic we will consider whether he needs to have finerenone or SGLT2 inhibitor started. I want to wait until he is done with his prostate surgery before introducing new medications. Renal disorder due to type 2 diabetes mellitus <Diabetic nephropathy> ([facility]) We will consider adding SGLT2 inhibitor or finerenone when he comes back to see me. Essential (primary) hypertension Blood pressure is well controlled on current medications. Benign prostatic hyperplasia without lower urinary tract symptom, not otherwise specified He will be going for surgery after he follows up with urology. He is on terazosin at night and he does self intermittent cath. Secondary hyperparathyroidism of renal origin ([facility]) He is on calcium plus D and vitamin D and has good control of his PTH. Metabolic acidosis, not otherwise specified His last bicarbonate was good.He continues on oral bicarbonate supplementation. Problem Specific Notes: No problem-specific Assessment & Plan notes found for this encounter. Recommendations: We will update his med list Return to clinic 6 months Consider introducing finerenone or SGLT2 inhibitor. There are no Patient Instructions on file for this visit. No orders of the defined types were placed in this encounter. Future Appointments No future appointments. documented in this encounter Plan of Treatment Upcoming Encounters Date Type Department Care Team Description 12/24/2023 10:00 AM MDT [facility] [address] [place] [address] Jomar Young MD [address] [facility] [address] [place], [place] [id number] documented as of this encounter Visit Diagnoses Diagnosis Chronic kidney disease, stage 4 (severe) ([facility])- Primary Renal disorder due to type 2 diabetes mellitus <Diabetic nephropathy> ([facility]) Essential (primary) hypertension Benign prostatic hyperplasia without lower urinary tract symptom, not otherwise specified Secondary hyperparathyroidism of renal origin ([facility]) Secondary hyperparathyroidism of renal origin Metabolic acidosis, not otherwise specified documented in this encounter Care Teams Roentgenology Teacher Relationship Specialty Start Date End Date [place] [address] PCP - General Internal Medicine 12/23/21 documented as of this encounter
--- OUTSIDE RECORDS SUMMARY | 2023-09-10 10:11 | XMS_ITS | Encounter Summary ---
Author Name Unknown Organization [facility]itt[facility] Address [address] [place] [address] Phone Care Team Providers Care Trap Operator Name Role Phone Nati Olsen MD Primary Care Provider + Reason for Visit * Reason Onset Date Comments RECORDS 09/24/2022 Encounter Details Date Type Department Care Team Description 09/24/2022 Telephone [facility] [address] [place], [place] [id number] Nayeli Singer RN RECORDS Social History Tobacco Use Types Packs/Day Years [...] encounter Miscellaneous Notes * Telephone Encounter - Margie Javier RN - 10/12/2022 11:46 AM CST I called pt with Dr. Young recommendation to start furosemide. He did tell me that [facility] and [facility] it about 3 days ago. So far he has not noticed more urine output but the edema in his legs is certainly improving. The rash he was seen for does come and go but is not worse. He agrees to continue the furosemide and call us if he has any questions or concerns. FUV scheduled for 12/29/22. * Telephone Encounter - Margie Javier RN - 10/02/2022 10:23 AM CST Records received from [facility] for Dr. Young to review. Labs are stable. Looks as if pts rash was unrelated to furosemide as he had not taken it prior to the rash starting. They advised that he could takeit, but it seems as if pt has chosen to hold. Next apt 12/29/[address] Young. * Telephone Encounter - Nayeli Singer RN - 09/24/2022 3:17 PM CST I had a lengthy conversation with Bipin. He is somewhat confused about an iron [facility]. He says that someone is trying to schedule this but isn't sure he should. I advised that he should. He notes also that he is not taking furosemide. Says that he never did. [facility] with [facility] and was told not to take it because it caused the rash. However, he says that he never gotit or took it. I am confused how it could cause his rash if he wasn't taking it. I told Bipin that I would try to get records from [facility]. He saw Dr. Olsen last week for an office visit. Of note, his swelling is still present, better in the am. He is not SOB but he feels his BP is low.He doesn't have any readings for me but says it was in the 110 range at his visit with Dr. Olsen. CRUZ documented in this encounter Plan of Treatment Upcoming Encounters Date Type Department Care Team Description 12/24/2023 10:00 AM MDT [facility] [address] [place] [address] Jomar Yougn MD [address] [facility] [address] [place], [place] [id number] documented as of this encounter Visit Diagnoses Not on filedocumented in this encounter Care Teams Trap Operator Relationship Specialty Start Date [place] [address] PCP - General Internal Medicine 12/23/21 documented as of this encounter
== END 2023-09-10 10:03 | disposition home or self-care (01) ==
LOC: RAD 10:07
PROVIDERS: PCP Internal Medicine; Visit Provider Internal Medicine
DX: I49.9 Cardiac arrhythmia, unspecified (principal); I51.7 Cardiomegaly
CPT/HCPCS: 93306